=== PATIENT | female | born 1940 | race Caucasian/White ===

== ENCOUNTER 2018-01-18 19:45 | Inpatient (IN) | payer OTHER ==
[~2018-01-18] VITALS: Ht 170.2 cm; Wt 73.9 kg
[2018-01-18 22:30] VITALS: BP 148/83
[2018-01-18] MEDS ORDERED: ACETAMINOPHEN 325 MG TABLET PO PRN (23:00)
[2018-01-18] MEDS ORDERED: MAGNESIUM HYDROXIDE 30 ML UDC PO PRN (23:00)
[2018-01-18] MEDS ORDERED: LORAZEPAM 0.5 MG TABLET PO PRN ×2 (23:00)
[2018-01-18] MEDS ORDERED: MAG HYDROX/AL HYDROX/SIMETH 30 ML UDC PO PRN (23:00)
[2018-01-18] MEDS ORDERED: LOSA50TA21 PO (23:12)
[2018-01-18] MEDS ORDERED: CLOP75TA15 PO (23:12)
[2018-01-18] MEDS ORDERED: ATOR10TA PO (23:13)
[2018-01-18] MEDS ORDERED: GABA-532 PO (23:14)
[2018-01-18] MEDS ORDERED: DOCU-141 PO (23:14)
[2018-01-18] MEDS ORDERED: METO-356 PO (23:15)
[2018-01-18] MEDS ORDERED: QUET25TA PO (23:16)
[2018-01-18] MEDS ORDERED: VERA240T35 PO (23:16)
[2018-01-19 08:28] VITALS: BP 130/70
[2018-01-19] MEDS: GABAPENTIN 100 MG CAPSULE PO SCH ×2 (09:33→17:41)
[2018-01-19] MEDS: ATORVASTATIN 10 MG TABLET PO SCH (09:33)
[2018-01-19] MEDS: CLOPIDOGREL BISULFATE 75 MG TABLET PO SCH (09:33)
[2018-01-19] MEDS: LOSARTAN POTASSIUM 50 MG TABLET PO SCH (09:33)
[2018-01-19] MEDS: METOPROLOL SUCCINATE 25 MG TAB.SR.24H PO SCH (09:33)
[2018-01-19] MEDS: DOCUSATE SODIUM 100 MG CAPSULE PO SCH ×2 (09:33→17:41)
[2018-01-19 09:47] LABS: ALANINE AMINOTRANSFERASE 36 U/L (12-78); ALBUMIN 3.5 g/dL (3.4-5.0); ALKALINE PHOSPHATASE 80 U/L (46-116); ASPARTATE AMINOTRANSFERASE 23 U/L (15-37); CARBON DIOXIDE 26 mmol/L (21-32); CHLORIDE 108 mmol/L (98-107); CREATININE 0.8 mg/dL (0.6-1.3); GLUCOSE 129 mg/dL (74-106); MAGNESIUM 3.2 mg/dL (1.8-2.4); POTASSIUM 4.1 mmol/L (3.5-5.1); SODIUM SERUM 144 mmol/L (136-145); TOTAL PROTEIN, SERUM 7.6 g/dL (6.4-8.2); UREA NITROGEN, BLOOD 20 mg/dL (7-18)
[2018-01-19 09:50] LABS: IRON, SERUM 53 ug/dl (50-175); TOTAL IRON BINDING CAPACITY 257 ug/dl (250-450)
[2018-01-19 09:57] LABS: THYROID STIMULATING HORMONE 1.207 uIU/mL (0.358-3.74)
[2018-01-19 17:05] VITALS: BP 140/85
[2018-01-19] MEDS: QUETIAPINE FUMARATE 25 MG TABLET PO SCH (17:41)
[2018-01-19 20:00] VITALS: BP_SYST 130; BP_SYST 138; BP_DIAS 74; BP_DIAS 76
[2018-01-19 21:00] VITALS: BP 130/70
[2018-01-20 08:00] VITALS: BP 153/103
[2018-01-20] MEDS: ATORVASTATIN 10 MG TABLET PO SCH (09:04)
[2018-01-20] MEDS: GABAPENTIN 100 MG CAPSULE PO SCH ×2 (09:04→17:19)
[2018-01-20] MEDS: QUETIAPINE FUMARATE 25 MG TABLET PO SCH ×2 (09:04→17:19)
[2018-01-20] MEDS: CLOPIDOGREL BISULFATE 75 MG TABLET PO SCH (09:04)
[2018-01-20] MEDS: DOCUSATE SODIUM 100 MG CAPSULE PO SCH ×2 (09:04→17:20)
[2018-01-20] MEDS: LOSARTAN POTASSIUM 50 MG TABLET PO SCH (09:05)
[2018-01-20] MEDS: METOPROLOL SUCCINATE 25 MG TAB.SR.24H PO SCH (09:05)
[2018-01-20 16:00] VITALS: BP 132/98
[2018-01-20 20:00] VITALS: BP 159/90
[2018-01-20] MEDS: TEMAZEPAM 7.5 MG CAPSULE PO PRN (23:56)
[2018-01-21 08:00] VITALS: BP 101/64
[2018-01-21] MEDS: CLOPIDOGREL BISULFATE 75 MG TABLET PO SCH (08:45)
[2018-01-21] MEDS: METOPROLOL SUCCINATE 25 MG TAB.SR.24H PO SCH (08:46)
[2018-01-21] MEDS: QUETIAPINE FUMARATE 25 MG TABLET PO SCH ×2 (08:46→16:49)
[2018-01-21] MEDS: DOCUSATE SODIUM 100 MG CAPSULE PO SCH ×2 (08:46→16:48)
[2018-01-21] MEDS: ATORVASTATIN 10 MG TABLET PO SCH (08:46)
[2018-01-21] MEDS: LOSARTAN POTASSIUM 50 MG TABLET PO SCH (08:46)
[2018-01-21] MEDS: GABAPENTIN 100 MG CAPSULE PO SCH ×2 (08:46→16:49)
[2018-01-21 16:00] VITALS: BP 109/68
[2018-01-21 20:00] VITALS: BP 150/90
[2018-01-21] MEDS: TEMAZEPAM 7.5 MG CAPSULE PO PRN (21:37)
[2018-01-21] MEDS: DONEPEZIL 5 MG TABLET PO SCH (21:37)
[2018-01-22 08:13] VITALS: BP 104/60
[2018-01-22] MEDS: LOSARTAN POTASSIUM 50 MG TABLET PO SCH (08:35)
[2018-01-22] MEDS: CLOPIDOGREL BISULFATE 75 MG TABLET PO SCH (08:35)
[2018-01-22] MEDS: DOCUSATE SODIUM 100 MG CAPSULE PO SCH ×2 (08:35→17:08)
[2018-01-22] MEDS: GABAPENTIN 100 MG CAPSULE PO SCH ×2 (08:36→17:07)
[2018-01-22] MEDS: QUETIAPINE FUMARATE 25 MG TABLET PO SCH ×2 (08:36→17:07)
[2018-01-22] MEDS: ATORVASTATIN 10 MG TABLET PO SCH (08:36)
[2018-01-22] MEDS: METOPROLOL SUCCINATE 25 MG TAB.SR.24H PO SCH (08:37)
[2018-01-22 16:00] VITALS: BP 160/80
[2018-01-22 19:43] VITALS: BP 139/83
[2018-01-22] MEDS: DONEPEZIL 5 MG TABLET PO SCH (21:32)
[2018-01-23 08:00] VITALS: BP 150/89
[2018-01-23] MEDS: CLOPIDOGREL BISULFATE 75 MG TABLET PO SCH (08:19)
[2018-01-23] MEDS: QUETIAPINE FUMARATE 25 MG TABLET PO SCH ×2 (08:20→16:03)
[2018-01-23] MEDS: METOPROLOL SUCCINATE 25 MG TAB.SR.24H PO SCH (08:20)
[2018-01-23] MEDS: LOSARTAN POTASSIUM 50 MG TABLET PO SCH (08:21)
[2018-01-23] MEDS: DOCUSATE SODIUM 100 MG CAPSULE PO SCH ×2 (08:21→16:03)
[2018-01-23] MEDS: GABAPENTIN 100 MG CAPSULE PO SCH ×2 (08:21→16:03)
[2018-01-23] MEDS: ATORVASTATIN 10 MG TABLET PO SCH (08:51)
[2018-01-23 14:45] LABS: APPEARANCE,URINE CLEAR (CLEAR); BILIRUBIN,URINE NEGATIVE (NEGATIVE); BLOOD, URINE NEGATIVE Ery/uL (NEGATIVE); COLOR,URINE YELLOW (YELLOW); KETONES,URINE NEGATIVE (NEGATIVE); LEUKOCYTE ESTERASE ,URINE 1+ (NEGATIVE); NITRITE, URINE NEGATIVE (NEGATIVE); PH,URINE 5.5 (5.0-8.0); PROTEIN,URINE NEGATIVE (NEGATIVE); UGLUCOSE NEGATIVE (NEGATIVE); UROBILINOGEN,URINE 0.2 EU/dL (0.2)
[2018-01-23 15:54] VITALS: BP 163/88
[2018-01-23 19:46] VITALS: BP 125/83
[2018-01-23] MEDS: DONEPEZIL 5 MG TABLET PO SCH (21:29)
[2018-01-23] MEDS: TEMAZEPAM 7.5 MG CAPSULE PO PRN (21:45)
[2018-01-24 08:00] VITALS: BP 139/84
[2018-01-24] MEDS: QUETIAPINE FUMARATE 25 MG TABLET PO SCH ×2 (08:12→17:11)
[2018-01-24] MEDS: CLOPIDOGREL BISULFATE 75 MG TABLET PO SCH (08:12)
[2018-01-24] MEDS: ATORVASTATIN 10 MG TABLET PO SCH (08:13)
[2018-01-24] MEDS: GABAPENTIN 100 MG CAPSULE PO SCH ×2 (08:13→17:11)
[2018-01-24] MEDS: METOPROLOL SUCCINATE 25 MG TAB.SR.24H PO SCH (08:13)
[2018-01-24] MEDS: LOSARTAN POTASSIUM 50 MG TABLET PO SCH (08:14)
[2018-01-24] MEDS: DOCUSATE SODIUM 100 MG CAPSULE PO SCH ×2 (08:14→17:11)
[2018-01-24 15:14] LABS: BACTERIA,URINE Few /HPF (None Seen); RBC,URINE 0-2 /HPF (0-2); SQUAMOUS EPITHELIAL CELL,UR Few /HPF (None Seen)
[2018-01-24 16:00] VITALS: BP 140/81
[2018-01-24 19:47] VITALS: BP 139/83
[2018-01-24] MEDS: SULFAMETH/TRIMETH 800/160 MG 1 UDTAB TABLET PO SCH (20:38)
[2018-01-24] MEDS: DONEPEZIL 5 MG TABLET PO SCH (20:38)
[2018-01-24] MEDS: TEMAZEPAM 7.5 MG CAPSULE PO PRN (21:50)
[2018-01-25 08:48] VITALS: BP 147/85
[2018-01-25] MEDS: DOCUSATE SODIUM 100 MG CAPSULE PO SCH (08:56)
[2018-01-25] MEDS: ATORVASTATIN 10 MG TABLET PO SCH (08:56)
[2018-01-25] MEDS: SULFAMETH/TRIMETH 800/160 MG 1 UDTAB TABLET PO SCH (08:56)
[2018-01-25] MEDS: CLOPIDOGREL BISULFATE 75 MG TABLET PO SCH (08:56)
[2018-01-25] MEDS: GABAPENTIN 100 MG CAPSULE PO SCH (08:56)
[2018-01-25 08:57] VITALS: BP 147/85
[2018-01-25] MEDS: METOPROLOL SUCCINATE 25 MG TAB.SR.24H PO SCH (08:57)
[2018-01-25] MEDS: LOSARTAN POTASSIUM 50 MG TABLET PO SCH (08:57)
[2018-01-25] MEDS: QUETIAPINE FUMARATE 25 MG TABLET PO SCH (08:57)
== END 2018-01-25 15:00 | disposition home or self-care (01) | DRG 885 ==
LOC: GPS 22:13
PROVIDERS: ADMIT Psychiatry & Neurology Psychiatry; ATTEND Psychiatry & Neurology Psychiatry
DX: F29 Unspecified psychosis not due to a substance or known physiological condition (principal); G93.41 Metabolic encephalopathy; F03.90 Unspecified dementia, unspecified severity, without behavioral disturbance, psychotic disturbance, mood disturbance, and anxiety; R45.850 Homicidal ideations; N39.0 Urinary tract infection, site not specified; E78.5 Hyperlipidemia, unspecified; I10 Essential (primary) hypertension; Z88.6 Allergy status to analgesic agent; Z88.0 Allergy status to penicillin; Z88.8 Allergy status to other drugs, medicaments and biological substances; I25.10 Atherosclerotic heart disease of native coronary artery without angina pectoris; Z86.73 Personal history of transient ischemic attack (TIA), and cerebral infarction without residual deficits; Z79.899 Other long term (current) drug therapy
CPT/HCPCS: 36415; 70450-TC; 80053-TC; 80061-TC; 81000-TC; 82746; 83540-TC; 83735-TC; 84300-TC; 84443-TC; 87081-TC; 87086-TC; 87186-TC